=== PATIENT | male | born 1990 | race African-American/Black ===

== ENCOUNTER 2017-03-21 07:38 | Emergency (ER) | payer BC ==
[~2017-03-21] VITALS: Ht 175.3 cm; Wt 77.1 kg
[2017-03-21] MEDS ORDERED: KETOROLAC 60MG/2ML VIAL IM ONE (08:00)
[2017-03-21 09:21] VITALS: BP 113/73
== END 2017-03-21 09:37 | disposition home or self-care (01) ==
LOC: ER 07:39
DX: S20.211A Contusion of right front wall of thorax, initial encounter (principal); V89.2XXA Person injured in unspecified motor-vehicle accident, traffic, initial encounter; Y93.89 Activity, other specified; Y92.89 Other specified places as the place of occurrence of the external cause; Y99.8 Other external cause status
CPT/HCPCS: 71101; 76700; 96372; 99284; J1885